=== PATIENT | female | born 1990 | race Caucasian/White ===

== ENCOUNTER 2019-09-14 09:20 | Emergency (ER) | payer MEDICAID ==
[2019-09-14] MEDS ORDERED: Ibuprofen 600 MG TAB ONE (10:43)
--- NOTE | 2019-09-14 10:43 | RAD ---
XR Hand Rt 3 View STANDARD HISTORY: Injury, right hand pain FINDINGS: There are bony fragments adjacent to the dorsal-ulnar aspect of the head of the third metacarpal cons istent with fracture. Adjacent soft tissue swelling is present.
== END 2019-09-14 11:35 | disposition home or self-care (01) ==
LOC: MADERS 09:20
DX: S62.332A Displaced fracture of neck of third metacarpal bone, right hand, initial encounter for closed fracture (principal); W22.8XXA Striking against or struck by other objects, initial encounter